=== PATIENT | male | born 1960 | race Caucasian/White ===

== ENCOUNTER 2022-01-18 09:33 | Outpatient (CLI) | payer OTHER, SELFPAY | END 2022-01-18 09:34 | disposition home or self-care (01) | PROVIDERS: PCP Family Medicine; Visit Provider Family Medicine | DX: M17.12 Unilateral primary osteoarthritis, left knee (principal); M25.562 Pain in left knee | CPT/HCPCS: 64454 ==

== ENCOUNTER 2022-02-05 08:44 | Outpatient (CLI) | payer OTHER, SELFPAY ==
[2022-02-07 19:01] LABS: SARS PCR* Negative SARS-CoV-2 (Negative)
== END 2022-02-05 08:45 | disposition home or self-care (01) ==
PROVIDERS: PCP Family Medicine; Visit Provider Family Medicine
DX: M17.12 Unilateral primary osteoarthritis, left knee (principal); G89.29 Other chronic pain; M25.562 Pain in left knee; Z20.822 Contact with and (suspected) exposure to COVID-19
CPT/HCPCS: 64624; 87635; J2250; J3010